=== PATIENT | female | born 1965 | race Caucasian/White ===

== ENCOUNTER 2017-11-17 12:16 | Emergency (ER) | payer OTHER ==
[2017-11-17 12:30] VITALS: BP 178/91
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
== END 2017-11-17 13:46 | disposition home or self-care (01) ==
LOC: UCEAST 12:16
DX: J32.9 Chronic sinusitis, unspecified (principal); R03.0 Elevated blood-pressure reading, without diagnosis of hypertension
CPT/HCPCS: 99212; G0463

== ENCOUNTER 2019-06-04 14:12 | Emergency (ER) | payer SELFPAY ==
[2019-06-04 14:22] VITALS: BP 176/99
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
== END 2019-06-04 15:30 | disposition home or self-care (01) ==
LOC: UCEAST 14:12
DX: M76.891 Other specified enthesopathies of right lower limb, excluding foot (principal); I10 Essential (primary) hypertension
CPT/HCPCS: 99211; G0463